=== PATIENT | female | born 1970 | race Hispanic/Latino ===

== ENCOUNTER 2017-09-17 14:41 | Outpatient (CLI) | payer OTHER ==
--- NOTE | 2017-09-17 15:19 | RAD ---
CHEST PA AND LATERAL: History: 47-year-old female with history of cough for three weeks. FINDINGS: Heart size is normal. The lungs are clear. No pneumonia, edema, or pleural effusion or other acute pr ocess. IMPRESSION: No acute intrathoracic disease. No evidence for pneumonia. POS: OFF
== END 2017-09-17 14:42 | disposition home or self-care (01) ==
LOC: NAV RAD 14:41
PROVIDERS: ATTEND Nurse Practitioner Family
DX: R05 Cough (principal)
CPT/HCPCS: 71046